=== PATIENT | female | born 1985 | race Caucasian/White ===

== ENCOUNTER 2019-10-15 17:49 | Emergency (ER) | payer MEDICAID ==
[~2019-10-15] VITALS: Ht 165.1 cm; Wt 56.2 kg
[2019-10-15] MEDS ORDERED: LEVO75TA PO (18:00)
--- NOTE | 2019-10-15 18:14 | NUR ---
Dr Giron at the bedside for MSE.
[2019-10-15] MEDS ORDERED: KETOROLAC TROMETHAMINE 30 MG INJ ONE (18:26)
[2019-10-15] MEDS ORDERED: DEXAMETHASONE SOD PHOSPHATE 10 MG INJ ONE (18:26)
[2019-10-15] MEDS ORDERED: ACETAMINOPHEN ES 500 MG TABLET ONE (18:26)
[2019-10-15] MEDS ORDERED: KETOROLAC TROMETHAMINE 30 MG INJ IM ONE (18:30)
[2019-10-15] MEDS ORDERED: ACETAMINOPHEN 325 MG TABLET PO ONE (18:30)
[2019-10-15] MEDS ORDERED: DEXAMETHASONE SOD PHOSPHATE 4 MG INJ IM ONE (18:30)
--- NOTE | 2019-10-15 19:05 | NUR ---
Assumed care from day shift RN
--- NOTE | 2019-10-15 19:10 | NUR ---
Patient discharged to home in stable conditon. Written and verbal after care instructions given. Patient verbalizes understanding of instructions. Patient ambulating with steady gait with family at bedside
[2019-10-15 19:11] VITALS: BP 105/63
== END 2019-10-15 19:09 | disposition home or self-care (01) ==
LOC: ER 17:51
DX: M54.42 Lumbago with sciatica, left side (principal); M62.830 Muscle spasm of back; J06.9 Acute upper respiratory infection, unspecified; E03.9 Hypothyroidism, unspecified; Z88.8 Allergy status to other drugs, medicaments and biological substances; Z79.899 Other long term (current) drug therapy
CPT/HCPCS: 96372 ×2; 99283; J1100; J1885; A4663; A9150

== ENCOUNTER 2019-10-18 14:33 | Emergency (ER) | payer MEDICAID ==
[~2019-10-18] VITALS: Ht 165.1 cm; Wt 56.2 kg
[~2019-10-18 14:33] MED LIST: LEVO75TA PO
--- NOTE | 2019-10-18 15:16 | NUR ---
Patient discharged to home in stable conditon. Written and verbal after care instructions given. Patient verbalizes understanding of instructions.pt walks in steady gait.
== END 2019-10-18 15:17 | disposition home or self-care (01) ==
LOC: ER 14:33
DX: J20.9 Acute bronchitis, unspecified (principal); E03.9 Hypothyroidism, unspecified; Z88.8 Allergy status to other drugs, medicaments and biological substances; Z79.899 Other long term (current) drug therapy
CPT/HCPCS: A4663

== ENCOUNTER 2021-09-29 19:49 | Emergency (ER) | payer MEDICAID ==
[~2021-09-29] VITALS: Ht 165.1 cm; Wt 58.5 kg
[2021-09-29] MEDS ORDERED: effexor PO (20:00)
--- NOTE | 2021-09-29 20:06 | NUR ---
pt present to er for back pain, states radiates to ble x 4 days. pt ambulated with steady gait. a/o x4 no, clear speech. no c/o c/p or sob. no c/o nausea vomiting. Dr. Victoria walker for MSE to pt.
[2021-09-29] MEDS ORDERED: DEXAMETHASONE SOD PHOSPHATE 4 MG INJ IM ONE (20:15)
[2021-09-29] MEDS ORDERED: KETOROLAC TROMETHAMINE 60 MG INJ IM ONE (20:15)
[2021-09-29] MEDS ORDERED: ACETAMINOPHEN ES 500 MG TABLET PO ONE (20:15)
[2021-09-29] MEDS ORDERED: KETOROLAC TROMETHAMINE 30 MG INJ ONE (20:30)
[2021-09-29] MEDS ORDERED: ACETAMINOPHEN ES 500 MG TABLET ONE (20:30)
[2021-09-29] MEDS ORDERED: DEXAMETHASONE SOD PHOSPHATE 10 MG INJ ONE (20:31)
--- NOTE | 2021-09-29 20:39 | NUR ---
urined specimen collected and sent to lab. pt ambulated to restroom without assist. all questions were answered regarding medications that were adminstered.
[2021-09-29 20:59] LABS: *URINE HCG, QUAL NEGATIVE (NEGATIVE)
[2021-09-29] MEDS ORDERED: NAPR-1164 PO (21:03)
[2021-09-29] MEDS ORDERED: CYCL10TA9 PO (21:03)
--- NOTE | 2021-09-29 21:06 | NUR ---
Patient discharged to home in stable condition. Written and verbal after care instructions given. Patient verbalizes understanding of instructions. Stressed follow up or return to ER for worsening s/s. pt d/c with steady gait, no c/o pain. answered all questions regarding medications.
[2021-09-29 21:07] VITALS: BP 106/70
== END 2021-09-29 21:08 | disposition home or self-care (01) ==
LOC: ER 19:49
DX: G89.29 Other chronic pain (principal); M54.50 Low back pain, unspecified; E03.9 Hypothyroidism, unspecified
CPT/HCPCS: 84703; 96372 ×2; 99284; J1100; J1885; A4663; A9150

== ENCOUNTER 2023-10-17 23:33 | Emergency (ER) | payer MEDICAID ==
[~2023-10-17] VITALS: Ht 165.1 cm; Wt 58.5 kg
[~2023-10-17 23:33] MED LIST changes: +CYCL10TA9 PO; +NAPR-1164 PO; +effexor PO
[2023-10-18 01:00] LABS: BASOPHILS % (AUTO) 0.3 % (0.0-2.0); CALCIUM 8.7 mg/dL (8.5-10.1); CREATININE 0.7 mg/dL (0.6-1.3); EOSINOPHILS # (AUTO) 0.1 K/uL (0.0-0.7); EOSINOPHILS % (AUTO) 0.4 % (0.0-7.0); HEMATOCRIT 40.1 % (31.2-41.9); HEMOGLOBIN 13.1 g/dL (10.9-14.3); LYMPHOCYTES # (AUTO) 1.1 K/uL (0.8-4.8); LYMPHOCYTES % (AUTO) 7.8 % (20.5-51.5); MEAN CORPUSCULAR HGB CONC 33 g/dL (32.3-35.6); MEAN CORPUSCULAR VOLUME 94.7 fL (75.5-95.3); MONOCYTES # (AUTO) 0.8 K/uL (0.1-1.30); NEUTROPHILS # (AUTO) 11.9 K/uL (1.8-8.9); NEUTROPHILS % (AUTO) 85.5 % (38.5-71.5); PLATELET COUNT (AUTO) 298 K/uL (179-408); POTASSIUM 4.3 mmol/L (3.5-5.1); RED BLOOD CELL COUNT(AUTO) 4.24 MIL/uL (3.63-4.92); RED CELL DISTRIBUTION WIDTH 13.8 % (12.3-17.7)
[2023-10-18 01:06] LABS: ALBUMIN 3.4 g/dL (3.4-5.0); BILIRUBIN,TOTAL 0.3 mg/dL (0.2-1.0); TOTAL PROTEIN, SERUM 7.7 g/dL (6.4-8.2)
[2023-10-18 01:34] LABS: *BILIRUBIN,URIN NEGATIVE (NEGATIVE); *BLOOD, URINE 1+ (NEGATIVE); *CLARITY,URINE CLEAR (CLEAR); *COLOR,URINE YELLOW (YELLOW); *KETONES,URINE TRACE (NEGATIVE); *PROTEIN,URINE NEGATIVE (NEGATIVE); LEUKOCYTE ESTERASE ,URINE TRACE (NEGATIVE); NITRITE, URINE NEGATIVE (NEGATIVE); PH,URINE 8.5 (5.0-8.0); UGLUCOSE NEGATIVE (NEGATIVE)
[2023-10-18] MEDS ORDERED: SWABABLE VALVE TRANSFER SET EA MC ONE (01:40)
[2023-10-18] MEDS ORDERED: IOHEXOL 300MG/ML 100 ML INFUS..BTL ONE (01:40)
[2023-10-18] MEDS ORDERED: IV NORMAL SALINE 250 ML IV ONE (01:42)
[2023-10-18 01:45] LABS: *URINE HCG, QUAL NEGATIVE (NEGATIVE); BACTERIA,URINE FEW /HPF (NONE SEEN); SQUAMOUS EPITHELIAL CELL,UR FEW /HPF (NONE SEEN)
[2023-10-18 01:49] LABS: *AMPHETAMINE, URINE NEGATIVE (NEGATIVE); *BARBITURATE, URINE NEGATIVE (NEGATIVE); *BENZODIAZEPINE, URINE NEGATIVE (NEGATIVE); *CANNABINOID, URINE NEGATIVE (NEGATIVE); *COCCAINE, URINE POSITIVE (NEGATIVE); *OPIATE, URINE NEGATIVE (NEGATIVE); *PHENCYCLIDINE SCREEN,URINE NEGATIVE (NEGATIVE); FENTANYL, URINE NEGATIVE (NEGATIVE)
[2023-10-18] MEDS ORDERED: methylPREDNISolone SOD SUCC 125 MG/2 ML VIAL IV ONE (04:00)
[2023-10-18] MEDS ORDERED: levoFLOXacin 500 MG/D5W 100ML PIGGYBACK IV ONE (04:00)
[2023-10-18] MEDS ORDERED: methylPREDNISolone SOD SUCC 125 MG/2 ML VIAL ONE (04:01)
[2023-10-18] MEDS ORDERED: levoFLOXacin 500 MG/D5W 100 ML ONE (04:01)
[2023-10-18] MEDS ORDERED: CLIN-118 PO (06:39)
[2023-10-18] MEDS ORDERED: PRED20TA PO (06:39)
[2023-10-18 06:55] VITALS: BP 110/68; TEMP 98; O2SAT 98
[2023-10-19] MEDS ORDERED: AMOX-430 PO ×2 (12:40→12:44)
[2023-10-19] MEDS ORDERED: PRED20TA PO ×2 (12:40→12:44)
== END 2023-10-18 06:58 | disposition home or self-care (01) ==
LOC: ER 23:46
DX: J36 Peritonsillar abscess (principal); R10.2 Pelvic and perineal pain; F32.A Depression, unspecified; E03.9 Hypothyroidism, unspecified; Z79.899 Other long term (current) drug therapy; Z20.822 Contact with and (suspected) exposure to COVID-19; Z88.1 Allergy status to other antibiotic agents
CPT/HCPCS: 36415; 70491; 84703; 85025; 86403; J1956; J2930; Q9967

== ENCOUNTER 2023-10-19 10:20 | Emergency (ER) | payer MEDICAID ==
[~2023-10-19] VITALS: Ht 165.1 cm; Wt 58.5 kg
[~2023-10-19 10:20] MED LIST changes: +CLIN-118 PO; +PRED20TA PO
[2023-10-19] MEDS ORDERED: DEXAMETHASONE SOD PHOSPHATE 4 MG INJ IV ONE (10:45)
[2023-10-19] MEDS ORDERED: IV NORMAL SALINE 500 ML BAG IV ONE (10:45)
[2023-10-19] MEDS ORDERED: AMPICILLIN IV 3 G in IV NORMAL SALINE 100 ML IV ONE (10:45)
[2023-10-19] MEDS ORDERED: KETOROLAC TROMETHAMINE 30 MG INJ IVP ONE (10:45)
[2023-10-19] MEDS ORDERED: KETOROLAC TROMETHAMINE 30 MG INJ ONE (10:52)
[2023-10-19] MEDS ORDERED: DEXAMETHASONE SOD PHOSPHATE 10 MG INJ ONE (10:52)
[2023-10-19] MEDS ORDERED: AMPICILLIN 2 G VIAL ONE (10:52)
[2023-10-19 10:54] LABS: BASOPHILS # (AUTO) 0.1 K/UL (0.0-0.2); BASOPHILS % (AUTO) 0.8 % (0.0-2.0); EOSINOPHILS # (AUTO) 0.1 K/uL (0.0-0.7); EOSINOPHILS % (AUTO) 0.8 % (0.0-7.0); HEMATOCRIT 38.2 % (31.2-41.9); HEMOGLOBIN 12.6 g/dL (10.9-14.3); LYMPHOCYTES # (AUTO) 1.9 K/uL (0.8-4.8); LYMPHOCYTES % (AUTO) 12.8 % (20.5-51.5); MEAN CORPUSCULAR HEMOGLOBIN 31.4 uug (24.7-32.8); MEAN CORPUSCULAR HGB CONC 33 g/dL (32.3-35.6); MEAN CORPUSCULAR VOLUME 95.2 fL (75.5-95.3); MONOCYTES # (AUTO) 0.9 K/uL (0.1-1.30); MONOCYTES % (AUTO) 5.9 % (0.0-11.0); NEUTROPHILS # (AUTO) 11.9 K/uL (1.8-8.9); NEUTROPHILS % (AUTO) 79.7 % (38.5-71.5); PLATELET COUNT (AUTO) 268 K/uL (179-408); RED BLOOD CELL COUNT(AUTO) 4.02 MIL/uL (3.63-4.92); RED CELL DISTRIBUTION WIDTH 14.2 % (12.3-17.7); WHITE BLOOD COUNT (AUTO) 14.9 K/uL (3.8-11.8)
[2023-10-19 11:02] LABS: CALCIUM 8.5 mg/dL (8.5-10.1); CREATININE 0.6 mg/dL (0.6-1.3); POTASSIUM 3.3 mmol/L (3.5-5.1)
[2023-10-19 11:48] LABS: DIFFERENTIAL COMMENT 1
[2023-10-19 12:40] VITALS: BP 116/79; O2SAT 97
[2023-10-19] MEDS ORDERED: PRED20TA PO ×2 (12:40→12:44)
[2023-10-19] MEDS ORDERED: AMOX-430 PO ×2 (12:40→12:44)
== END 2023-10-19 13:08 | disposition home or self-care (01) ==
LOC: ER 10:23
DX: J36 Peritonsillar abscess (principal); F32.A Depression, unspecified; E03.9 Hypothyroidism, unspecified; Z79.899 Other long term (current) drug therapy; Z88.1 Allergy status to other antibiotic agents
CPT/HCPCS: 99284; 96365; 96375; 80048; 85025; 36415; J0290; J1100; J1885; J7040; A4606; A4663